=== PATIENT | female | born 1935 | race Caucasian/White ===

== ENCOUNTER 2018-01-02 08:29 | Day surgery (SDC) | payer MEDICARE, OTHER ==
[~2018-01-02 08:29] MED LIST: Acetaminophen TAB* 325 MG PO PRN; Buffered Lidocaine 0.9% SYRIN* 5 ML/SYR SYRINGE INTRADERM ONE
[2018-01-02] MEDS ORDERED: Midazolam* 1 MG/ML 2 ML VIAL (2 MG) ONE (10:21)
[2018-01-02] MEDS ORDERED: acetaZOLAMIDE TAB* 250 MG ONE (11:04)
[2018-01-02] MEDS ORDERED: Tropicamide 1% OPTH.SOL* BTL ONE (11:04)
[2018-01-02] MEDS ORDERED: Neomycin/Polymy/Dex OPHTH.OIN* 3.5 GM ONE (11:04)
[2018-01-02] MEDS ORDERED: Tetracaine 0.5% OPTH.SOL 4 ML* 1 DROP BTL ONE (11:04)
[2018-01-02] MEDS ORDERED: Phenylephrine 2.5% OPTH.SOL* 2 ML BTL ONE (11:04)
[2018-01-02] MEDS ORDERED: Lidocaine 1%* 5 ML VIAL ONE (11:04)
[2018-01-02] MEDS ORDERED: Cyclopentolate 1% OPTH.SOL* 2 ML BTL ONE (11:04)
[2018-01-02] MEDS ORDERED: Povidone Iodine 5% OPTH* 30 ML BTL ONE (11:04)
[2018-01-02] MEDS ORDERED: Artificial Tear OPHTH.OINT* 3.5 GM ONE (11:19)
[2018-01-02 11:28] VITALS: BP 145/73
--- NOTE | 2018-01-02 14:51 | OP ---
DATE OF OPERATION: 01/02/18 [facility] DATE OF : 37 SURGEON: Mark Navarrete MD. ANESTHESIA: Monitored anesthesia care. PRE-OP DIAGNOSIS: Cataract, right eye. POST-OP DIAGNOSIS: Cataract, right eye. OPERATIVE PROCEDURE: Extracapsular cataract extraction of the right eye with intraocular lens implant. IMPLANTS: SN60WF 18.0 diopter lens to the right eye. COMPLICATIONS: None. DESCRIPTION OF PROCEDURE: The patient was given phenylephrine 2.5% and cyclopentolate 1% eye drops to the operative eye in the preoperative area. The patient was taken to the operating room where a time-out was taken to identify the correct patient, site, and side of the surgery. The patient's right eye was prepped and draped in the usual sterile fashion with 5% Betadine. A second time- out was taken to verify the correct patient, site, side of the surgery, and correct lens implant. A lid speculum was placed to the right eye. A 1-mm paracentesis blade was used to make a clear corneal incision in the superotemporal position. Preservative-free 1% lidocaine was injected into the anterior chamber. DisCoVisc was then injected into the anterior chamber. A 2.75-mm keratome blade was used to make a triplanar incision at the inferotemporal position. A cystotome initiated a capsulorrhexis, which was completed with Utrata forceps in a continuous and curvilinear manner. Hydrodissection of the lens was performed with BSS on a cannula. The lens could be spun in the capsular bag. The phacoemulsification handpiece was used with a divide and conquer technique to remove the nucleus. The I/A handpiece then removed the residual cortical lens material. DisCoVisc was injected to inflate the capsular bag. The planned SN60WF 18.0 diopter lens was injected into the capsular bag. The residual DisCoVisc was removed from the eye with the I/A handpiece. The corneal incisions were hydrated and no leaks occurred at physiologic pressure around 20 mmHg per palpation. The lid speculum was removed and drapes removed. Maxitrol ointment was placed on the surface of the operative eye. An adhesive patch and shield was then placed on the operative eye. The patient was taken to the postoperative area in stable condition. [id number]/[facility] #: [id number] NAEL
== END 2018-01-02 11:29 | disposition home or self-care (01) ==
LOC: OREAST 08:29
PROVIDERS: ATTEND Student in an Organized Health Care Education/Training Program
DX: H25.11 Age-related nuclear cataract, right eye (principal); H43.811 Vitreous degeneration, right eye; E78.4 Other hyperlipidemia
CPT/HCPCS: A9270-GY; J2250; V2632

== ENCOUNTER 2018-01-09 08:49 | Day surgery (SDC) | payer MEDICARE, OTHER ==
[~2018-01-09 08:49] MED LIST changes: -Acetaminophen TAB* 325 MG PO PRN
[2018-01-09] MEDS ORDERED: Midazolam* 1 MG/ML 2 ML VIAL (2 MG) ONE (11:18)
[2018-01-09] MEDS ORDERED: Neomycin/Polymy/Dex OPHTH.OIN* 3.5 GM ONE (12:42)
[2018-01-09] MEDS ORDERED: Povidone Iodine 5% OPTH* 30 ML BTL ONE (12:42)
[2018-01-09] MEDS ORDERED: Lidocaine 1%* 5 ML VIAL ONE (12:42)
[2018-01-09] MEDS ORDERED: Tropicamide 1% OPTH.SOL* BTL ONE (12:42)
[2018-01-09] MEDS ORDERED: Cyclopentolate 1% OPTH.SOL* 2 ML BTL ONE (12:42)
[2018-01-09] MEDS ORDERED: Phenylephrine 2.5% OPTH.SOL* 2 ML BTL ONE (12:42)
[2018-01-09] MEDS ORDERED: acetaZOLAMIDE TAB* 250 MG ONE (12:42)
[2018-01-09] MEDS ORDERED: Tetracaine 0.5% OPTH.SOL 4 ML* 1 DROP BTL ONE (12:43)
[2018-01-09 12:56] VITALS: BP 148/67
--- NOTE | 2018-01-10 00:41 | OP ---
DATE OF OPERATION: 01/09/18 - [facility] DATE OF : 37 SURGEON: Mark Navarrete MD ANESTHESIA: Monitored anesthesia care. PRE-OP DIAGNOSIS: Cataract, left eye. POST-OP DIAGNOSIS: Cataract, left eye. OPERATIVE PROCEDURE: Extracapsular cataract extraction of the left eye with intraocular lens implant. IMPLANTS: SN60WF 19.0 diopter lens to left eye. COMPLICATIONS: None. DESCRIPTION OF PROCEDURE: The patient was given phenylephrine 2.5% and cyclopentolate 1% eye drops to the operative eye in the preoperative area. The patient was taken to the operating room where a time-out was taken to identify the correct patient, site, and side of surgery. The patient's left eye was prepped and draped in the usual sterile fashion with 5% Betadine. A second time -out was taken to verify the correct patient, site, and side of surgery, and correct lens implant. A lid speculum was placed to the left eye. A 1 mm paracentesis blade was used to make a clear corneal incision in the inferotemporal position. Preservative-free 1% lidocaine was injected into the anterior chamber. DisCoVisc was then injected into the anterior chamber. A 2.75 mm keratome blade was used to make a triplanar incision at the superotemporal position. A cystotome initiated a capsulorrhexis, which was completed with Utrata forceps in a continuous and curvilinear manner. Hydrodissection of the lens was performed with BSS on a cannula. The lens could be spun in the capsular bag. The phacoemulsification handpiece was used with a divide and conquer technique to remove the nucleus with 33.06 CDE. The I /A handpiece then removed the residual cortical lens material. DisCoVisc was injected to inflate the capsular bag. The planned SN60WF 19.0 diopter lens was injected into the capsular bag. The residual DisCoVisc was removed from the eye with the I/A handpiece. The corneal incisions were hydrated and no leaks occurred at physiologic pressure around 20 mmHg per palpation. The lid speculum was removed and drapes removed. Maxitrol ointment was placed on the surface of the operative eye. An adhesive patch and shield was then placed on the operative eye. The patient was taken to the postoperative area in stable condition. [id number]/[facility] #: [id number] [facility]
== END 2018-01-09 12:06 | disposition home or self-care (01) ==
LOC: OREAST 08:49
PROVIDERS: ATTEND Student in an Organized Health Care Education/Training Program
DX: H25.12 Age-related nuclear cataract, left eye (principal); H43.811 Vitreous degeneration, right eye; Z85.72 Personal history of non-Hodgkin lymphomas; E78.4 Other hyperlipidemia
CPT/HCPCS: A9270-GY; J2250; V2632